=== PATIENT | female | born 1945 | race Caucasian/White ===

== ENCOUNTER → 2016-07-20 | Outpatient (CLI) | payer OTHER ==
[2016-07-20 08:43] LABS: BASOPHILS # (AUTO) 0.06 10*3/UL; EOSINOPHILS % (AUTO) 6.1 % (0-8); HEMATOCRIT 34.2 % (37.0-47.0); HEMOGLOBIN 10.7 g/dL (12.0-16.0); IMM GRAN % (AUTO) 0 % (0-5); IMM GRAN# (AUTO) 0 10*3/UL; LYMPHOCYTES # (AUTO) 1.37 10*3/uL; LYMPHOCYTES % (AUTO) 22.1 % (10-50); MEAN CORPUSCULAR HEMOGLOBIN 32.2 PG (27-31); MEAN CORPUSCULAR HGB CONC 31.3 g/dL (33-37); MEAN PLATELET VOLUME 10.7 FL (7.4-12.2); MONOCYTES # (AUTO) 0.46 10*3/UL (0.3-0.8); MONOCYTES % (AUTO) 7.4 % (5-15); NEUTROPHILS # (AUTO) 3.94 10*3/UL; NEUTROPHILS % (AUTO) 63.4 % (50-80); RDW COEFFICIENT OF VARIATION 13.2 % (11.5-14.5); RED BLOOD COUNT 3.32 10^6/uL (4.20-5.40); WHITE BLOOD COUNT 6.21 10^3/uL (4.8-10.8)
[2016-07-20 08:49] LABS: PLATELET MORPHOLOGY COMMENT NORMAL MORPHOLOGY (NORM)
[2016-07-20 09:34] LABS: POTASSIUM 4.2 meq/L (3.8-5.2)
[2016-07-20 09:35] LABS: BUN/CREATININE RATIO 38.75 (6-20); CALCIUM 8.9 mg/dL (8.7-10.7); CREATININE 1.6 mg/dL (0.50-1.20)
[2016-07-20 09:36] LABS: TOTAL PROTEIN 6.6 g/dL (6.1-8.0)
[2016-07-20 09:38] LABS: BILIRUBIN,TOTAL 0.7 mg/dL (0.3-1.2)
[2016-07-20 11:27] LABS: BILIRUBIN,URINE NEGATIVE (NEG); GLUCOSE, URINE (UA) NEGATIVE (NEG); LEUKOCYTE ESTERASE ,URINE SMALL (NEG); NITRATE,URINE POSITIVE (NEG); OCCULT BLOOD,URINE NEGATIVE (NEG); PH,URINE 5.5 (5.0-8.5); PROTEIN,URINE NEGATIVE (NEG); UROBILINOGEN,URINE 0.2 mg/dL (0.2)
[2016-07-20 11:30] LABS: CLARITY,URINE SLIGHTLY CLOUDY (CLEAR); URINE SAMPLE TYPE CLEAN CATCH URINE
[2016-07-20 11:34] LABS: BACTERIA,URINE MODERATE; SQUAMOUS EPITHELIAL CELL,UR RARE
[2016-07-20 14:11] LABS: LDL CHOLESTEROL,CALCULATED 28.2 mg/dL
[2016-07-24 07:37] LABS: MEAN BLOOD GLUCOSE (CALC) 123.79 mg/dL
[2016-07-24 07:39] LABS: HEMOGLOBIN A1C 6.3 % (4.2-6.0)
== END ==
LOC: LAB 08:24
PROVIDERS: ATTEND Internal Medicine
DX: E13.9 Other specified diabetes mellitus without complications (principal); I10 Essential (primary) hypertension; E78.2 Mixed hyperlipidemia; N39.0 Urinary tract infection, site not specified
CPT/HCPCS: 36415; 80053; 80061; 81001; 82043; 82728; 83036; 83540; 83550; 84443; 85025; 87077; 87088; 87186

== ENCOUNTER → 2016-09-05 | Outpatient (CLI) | payer OTHER ==
[2016-09-05 11:22] LABS: CALCIUM 9.4 mg/dL (8.7-10.7); CREATININE 1.5 mg/dL (0.50-1.20); POTASSIUM 4.4 meq/L (3.8-5.2)
[2016-09-05 11:23] LABS: BILIRUBIN,URINE NEGATIVE (NEG); CLARITY,URINE Slightly Clo (CLEAR); GLUCOSE, URINE (UA) NEGATIVE (NEG); LEUKOCYTE ESTERASE ,URINE MODERATE (NEG); NITRATE,URINE POSITIVE (NEG); OCCULT BLOOD,URINE NEGATIVE (NEG); PROTEIN,URINE NEGATIVE (NEG); UROBILINOGEN,URINE 0.2 mg/dL (0.2)
[2016-09-05 11:37] LABS: BACTERIA,URINE MANY; SQUAMOUS EPITHELIAL CELL,UR FEW; URINE SAMPLE TYPE CLEAN CATCH URINE; WBC,URINE 35-40
== END ==
LOC: MOB LAB 08:49
PROVIDERS: ATTEND Internal Medicine
DX: E78.2 Mixed hyperlipidemia (principal); I10 Essential (primary) hypertension; N15.1 Renal and perinephric abscess; R60.0 Localized edema; N39.0 Urinary tract infection, site not specified; R82.99 Other abnormal findings in urine
CPT/HCPCS: 80048; 81001; 82607; 87077; 87088; 87186

== ENCOUNTER → 2016-09-19 | Outpatient (CLI) | payer OTHER ==
--- NOTE | 2016-09-19 12:52 | DI ---
BILATERAL RENAL ULTRASOUND, 09/19/2016 9:49 AM: Clinical History: Urinary tract infection. Previous Exam: None at this facility. Scans are performed through both kidneys in multiple projections. The right kidney measures 143 mm, a nd the left kidney measures 88 mm. There is an ovoid 30 x 45 x 50 mm simple cyst in the lower pole of the right kidney, but there is no solid mass in either kidney. There is less renal parenchyma in the left kidney compared to the right. Medial to the inner margin of the left kidney is a fluid containi ng structure that probably represents a mildly dilated left renal pelvis, but there is no caliectasis . 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 There is no left hydroureter. There is right no hydronephrosis or hydroureter. Perfusion to both kidneys is symmetric and normal. The bladder only partially filled but is normal. Bilateral ureteral jets are not visuali zed. There is an estimated prevoid bladder volume of 90 mL. There is no post void residual volume. Readin. The right kidney is much larger than the left kidney but part of the reason is the presence of a 30 x 45 x 50 mm simple cyst in the lower pole. There is a normal appearance of the right renal parenc hyma. The left kidney is smaller than the right in the amount of renal parenchyma in the left kidney is decreased compared to the right side. Neither kidney exhibits caliectasis, but the left renal pelv is may be dilated secondary to a low-grade congenital ureteropelvic junction stenosis. The right linda l pelvis and there is no hydroureter noted on either side. 2. The bladder is only partially filled but the patient does void completely. Neither ureteral jet w as visualized within the duration of the exam.
== END ==
LOC: US 09:41
PROVIDERS: ATTEND Internal Medicine
DX: N39.0 Urinary tract infection, site not specified (principal); N15.1 Renal and perinephric abscess; R79.89 Other specified abnormal findings of blood chemistry
CPT/HCPCS: 76770

== ENCOUNTER → 2016-09-29 | Outpatient (CLI) | payer OTHER ==
[2016-09-29 10:09] LABS: BILIRUBIN,URINE NEGATIVE (NEG); CLARITY,URINE CLEAR (CLEAR); COLOR,URINE YELLOW; GLUCOSE, URINE (UA) NEGATIVE (NEG); NITRATE,URINE POSITIVE (NEG); OCCULT BLOOD,URINE Trace-intact (NEG); PH,URINE 5.5 (5.0-8.5); PROTEIN,URINE NEGATIVE (NEG); UROBILINOGEN,URINE 0.2 mg/dL (0.2)
[2016-09-29 10:20] LABS: URINE SAMPLE TYPE CLEAN CATCH URINE
[2016-09-29 10:21] LABS: BACTERIA,URINE MODERATE; SQUAMOUS EPITHELIAL CELL,UR RARE; WBC,URINE 30-40
[2016-09-29 10:22] LABS: BUN/CREATININE RATIO 48.66 (6-20); CALCIUM 9.3 mg/dL (8.7-10.7)
== END ==
LOC: MOB LAB 08:32
PROVIDERS: ATTEND Internal Medicine
DX: N39.0 Urinary tract infection, site not specified (principal); R82.99 Other abnormal findings in urine; I10 Essential (primary) hypertension
CPT/HCPCS: 36415; 80048; 81001; 87077; 87088; 87186

== ENCOUNTER → 2016-11-10 | Outpatient (CLI) | payer OTHER ==
[2016-11-10 13:29] LABS: BILIRUBIN,URINE NEGATIVE (NEG); COLOR,URINE YELLOW; GLUCOSE, URINE (UA) NEGATIVE (NEG); NITRATE,URINE POSITIVE (NEG); OCCULT BLOOD,URINE NEGATIVE (NEG); PROTEIN,URINE NEGATIVE (NEG); UROBILINOGEN,URINE 0.2 mg/dL (0.2)
[2016-11-10 13:42] LABS: CLARITY,URINE SLIGHTLY CLOUDY (CLEAR)
[2016-11-10 13:44] LABS: BACTERIA,URINE MODERATE; SQUAMOUS EPITHELIAL CELL,UR RARE; URINE SAMPLE TYPE CLEAN CATCH URINE; WBC,URINE 40-50
== END ==
LOC: MOB LAB 09:38
PROVIDERS: ATTEND Internal Medicine
DX: N39.0 Urinary tract infection, site not specified (principal); R82.99 Other abnormal findings in urine
CPT/HCPCS: 81001; 87077; 87088; 87186

== ENCOUNTER → 2016-11-14 | Outpatient (CLI) | payer OTHER | LOC: MMPC 11:11 | PROVIDERS: ATTEND Internal Medicine | DX: E11.9 Type 2 diabetes mellitus without complications (principal); I10 Essential (primary) hypertension; R79.9 Abnormal finding of blood chemistry, unspecified; M54.5 Low back pain; M25.562 Pain in left knee; M25.561 Pain in right knee; M25.511 Pain in right shoulder; E78.2 Mixed hyperlipidemia; N30.00 Acute cystitis without hematuria | CPT/HCPCS: 99213; G0463 ==

== ENCOUNTER → 2016-11-15 | Outpatient (CLI) | payer OTHER ==
[2016-11-15 09:39] LABS: BASOPHILS % (AUTO) 1.5 % (0-1); EOSINOPHILS # (AUTO) 0.45 10*3/UL; EOSINOPHILS % (AUTO) 6.6 % (0-8); HEMOGLOBIN 10.9 g/dL (12.0-16.0); LYMPHOCYTES # (AUTO) 1.49 10*3/uL; MEAN CORPUSCULAR HEMOGLOBIN 33.4 PG (27-31); MEAN CORPUSCULAR HGB CONC 32.1 g/dL (33-37); MEAN CORPUSCULAR VOLUME 104.3 FL (81-99); MONOCYTES # (AUTO) 0.37 10*3/UL (0.3-0.8); MONOCYTES % (AUTO) 5.4 % (5-15); NEUTROPHILS # (AUTO) 4.37 10*3/UL; NEUTROPHILS % (AUTO) 64.5 % (50-80); RED BLOOD COUNT 3.26 10^6/uL (4.20-5.40)
[2016-11-15 09:47] LABS: PLATELET MORPHOLOGY COMMENT NORMAL MORPHOLOGY (NORM); RBC MORPHOLOGY COMMENT NORMAL MORPHOLOGY (NORM); WBC MORPHOLOGY COMMENT NORMAL MORPHOLOGY (NORM)
[2016-11-15 09:51] LABS: BUN/CREATININE RATIO 48.12 (6-20); CALCIUM 9.5 mg/dL (8.7-10.7); SERUM ALBUMIN 3.9 g/dL (3.5-4.8)
[2016-11-15 09:55] LABS: CHOL/HDL RATIO 2.55 RATIO (0-4.0); HDL CHOLESTEROL 40 mg/dL (40-150); SERUM CHOLESTEROL 102 mg/dL (120-200)
[2016-11-15 10:06] LABS: C-REACTIVE PROTEIN < 0.5 mg/dL (0.0-0.9)
[2016-11-15 10:18] LABS: HEMOGLOBIN A1C 6.16 % (4.2-6.0)
--- NOTE | 2016-11-15 11:33 | DI ---
XR SHOULDER MIN 2VW,11/15/2016 9:21 AM: Clinical History: Right shoulder pain Previous Exam: January 14, 2008 Findings: 3 views of the right shoulder are obtained, and demonstrate advanced degenerative changes of the righ t acromioclavicular joint. The adjacent right lung and chest wall are unremarkable. Impression: Diffuse degenerative hypertrophy of the right acromioclavicular joint otherwise unremarkable. These c hanges are only slightly worse since 2007.
--- NOTE | 2016-11-15 11:37 | DI ---
XR L-SPINE 2-3 VW,11/15/2016 9:21 AM: Clinical History: Low back pain. Previous Exam: None at this facility. Findings: 3 views of the lumbar spine are obtained, and demonstrate diffuse degenerative changes of lumbar spin e with near complete loss of intervertebral disc height. There is grade 1 anterolisthesis of L4 on L5. Postsurgical changes are also noted within the abdomen which were not seen on the prior exam. There has been increasing loss of intervertebral disc height and increasing sclerosis. No pathologic calcifications are seen. Impression: Advancing degenerative disc disease and facet arthropathy.
--- NOTE | 2016-11-15 11:40 | DI ---
XR KNEE CMPT 4 OR MORE VWS,11/15/2016 9:21 AM: Clinical History: Left knee pain Previous Exam: None at this facility. Findings: 3 views of the right knee are obtained, and demonstrate tricompartmental degenerative changes of the right knee with osteophyte formation. There is a loose body noted within the suprapatellar recess. Peripheral vascular calcifications are seen. Impression: Advanced degenerative osteoarthritis of the right knee to include loose bodies which would suggest un derlying full-thickness osteochondral defects.
== END ==
LOC: RAD 09:17
PROVIDERS: ATTEND Internal Medicine
DX: M25.562 Pain in left knee (principal); M54.5 Low back pain; M25.511 Pain in right shoulder; E11.65 Type 2 diabetes mellitus with hyperglycemia; I10 Essential (primary) hypertension; E78.2 Mixed hyperlipidemia; N30.00 Acute cystitis without hematuria; E66.01 Morbid (severe) obesity due to excess calories; R60.0 Localized edema; M17.12 Unilateral primary osteoarthritis, left knee; M47.816 Spondylosis without myelopathy or radiculopathy, lumbar region; M19.011 Primary osteoarthritis, right shoulder
CPT/HCPCS: 36415; 72100; 73030; 73564; 80053; 80061; 83036; 85025; 86140

== ENCOUNTER → 2016-12-05 | Outpatient (CLI) | payer OTHER | LOC: MMPC 11:11 | PROVIDERS: ATTEND Internal Medicine | DX: I10 Essential (primary) hypertension (principal); E11.9 Type 2 diabetes mellitus without complications; R79.89 Other specified abnormal findings of blood chemistry; R10.32 Left lower quadrant pain | CPT/HCPCS: 99213; G0463 ==

== ENCOUNTER 2017-02-03 21:12 | Inpatient (IN) | payer OTHER ==
[2017-02-03] MEDS ORDERED: NORMAL SALINE 10 ML SYRINGE FLUSH IVP PRN (21:30)
--- NOTE | 2017-02-03 21:36 | EKG ---
[address] [address] Measurements Intervals [place] Rate: 160 P: IN: 0 QRS: 27 QRSD: 86 T: 51 QT: 262 QTc: 351 Interpretive Statements ATRIAL FIBRILLATION WITH RAPID VENTRICULAR RESPONSE LOW QRS VOLTAGE IN EXTREMITY LEADS [QRS DEFLECTION < 0.5 mV IN LIMB LEADS] MODERATE ST DEPRESSION [0.05+ mV ST DEPRESSION] INTERPRETATION BASED ON A DEFAULT AGE OF 40 YEARS No previous ECG available for comparison Electronically Signed On 02-06-17 07:56:08 MDT by Marino Manuel MD [email or web address]
[2017-02-03 21:37] LABS: BASOPHILS # (AUTO) 0.02 10*3/UL; BASOPHILS % (AUTO) 0.2 % (0-1); EOSINOPHILS # (AUTO) 0 10*3/UL; EOSINOPHILS % (AUTO) 0 % (0-8); HEMATOCRIT 31.4 % (37.0-47.0); HEMOGLOBIN 10.1 g/dL (12.0-16.0); LYMPHOCYTES # (AUTO) 0.65 10*3/uL; MEAN CORPUSCULAR HEMOGLOBIN 31.9 PG (27-31); MEAN CORPUSCULAR HGB CONC 32.2 g/dL (33-37); MEAN CORPUSCULAR VOLUME 99.1 FL (81-99); MEAN PLATELET VOLUME 11.8 FL (7.4-12.2); MONOCYTES # (AUTO) 0.96 10*3/UL (0.3-0.8); MONOCYTES % (AUTO) 8.4 % (5-15); NEUTROPHILS # (AUTO) 9.78 10*3/UL; NEUTROPHILS % (AUTO) 85.5 % (50-80); PLATELET MORPHOLOGY COMMENT NORMAL MORPHOLOGY (NORM); RBC MORPHOLOGY COMMENT NORMAL MORPHOLOGY (NORM); RED BLOOD COUNT 3.17 10^6/uL (4.20-5.40); WBC MORPHOLOGY COMMENT NORMAL MORPHOLOGY (NORM)
[2017-02-03] MEDS: Sodium Chloride 0.9% 1,000 ML PRIMARY IV ONE ×2 (21:44→22:32)
[2017-02-03 21:55] LABS: BUN/CREATININE RATIO 39.13 (6-20); CALCIUM 8.8 mg/dL (8.7-10.7); SERUM ALBUMIN 3.2 g/dL (3.5-4.8)
[2017-02-03 22:05] LABS: MAGNESIUM 2.4 mg/dL (1.6-2.4)
[2017-02-03 22:10] LABS: VENOUS PH 7.38 (7.32-7.42)
--- NOTE | 2017-02-03 22:11 | PDOC ---
General Adult HPI - General Chief Complaint: General Medical Stated Complaint: WEAKNESS/ "FEELS ILL" Date Seen by Provider: 02/03/17 Time Seen by Provider: 21:25 Source: POSITIVE: Patient, EMS Exam Limitations: POSITIVE: No limitations Nurse's Notes Reviewed & Considered: Yes EMS Report Reviewed & Considered: Verbal - History of Present Illness Initial Comment: The patient is a 71-year-old female who is brought to the emergency department by ambulance. She reports that she has not been feeling well for the past week or so. She reports generalized weakness and malaise. She states that she "hurts" all over however primarily in her legs and back. She states that she has not really ate or drank for the past few days. She also reports that she has not taken any of her medications for at least the past couple of days and possibly longer. Today she was so weak that she could not even get out of bed. A friend came to check on her and subsequently called EMS. When they arrived the patient was awake and alert. Initial vital signs revealed a pulse in the 160s and this appeared to be A. fib on the monitor. Her blood pressure was 116 initially. The patient denies any sensation of chest pain or palpitation. She does report shortness of breath chronically. She denies any fever or chills. She does have a history of hypertension and diabetes. Her blood sugar on scene was over 300. She does have a history of urinary tract infections and reports she was last treated approximately 6 weeks ago. Have you received a tetanus shot in the past 10 years?: Unknown - Patient Home Medications Home Medications: Home Medications Aspirin 81 mg PO DAILY tab 07/04/16 Bacillus Coagulans [Probiotic] 1 each PO DAILY cap 07/04/16 Cholecalciferol (Vitamin D3) [Vitamin D3] 1 tab PO QD tab 07/04/16 Ibuprofen 2 tab-cap PO TID tab 07/04/16 Iron 18 mg PO DAILY tab 07/04/16 Multivitamin [Daily Lionel] 1 tab PO DAILY tab 07/04/16 Vit A/Vit C/Vit E/Zinc/Copper [Preservision Areds Tablet] 1 each PO QD tab Vitamin B Complex & Vit C No.4 [Super B Complex] 1 tab-cap PO QD tab 07/04/16 Metformin HCl 1 tab-cap PO BID #180 tab-cap 08/02/16 Potassium Chloride 1 tab-cap PO PRN #90 tab-cap 09/05/16 Fluconazole [Diflucan] 1 tab PO ONCE #1 tab 09/19/16 Metoprolol Tartrate 1 tab-cap PO BID #180 tab 09/30/16 Atorvastatin Calcium 1 tab-cap PO QD #90 tab-cap 10/17/16 Duloxetine HCl 1 tab-cap PO BID #180 tab-cap 11/14/16 Furosemide 1 tab PO BID #180 tab 11/14/16 Gabapentin 1 tab-cap PO TID #270 cap 11/14/16 Lisinopril/Hydrochlorothiazide [Lisinopril-Hctz 10-12.5 Mg Tab] 1 tab-cap PO QD #90 tab-cap 01/18/17 - Patient Allergies Allergies/Adverse Reactions: Allergies Allergy/AdvReac Type Severity Reaction Status Date / Time No Known Allergies Allergy Verified 02/03/17 22:01 Past Medical History Past Medical History Reviewed: Other (please comment) (Medical record reviewed) ROS - Limitations ROS Limitations: No Limitations (The patient is somewhat of a poor historian although she does answer questions) Constitution: DENIES: Chills, Fever Cardiovascular: DENIES: Chest Pain, Heart Palpitations Respiratory: REPORTS: Shortness Of Breath. DENIES: Cough Non Productive, Cough Productive, Hurts To Breathe Neurological: REPORTS: Difficulty Walking (Patient has generalized weakness). DENIES: Headache Gastrointestinal: REPORTS: Other (She was incontinent of stool at home). DENIES : Abdominal Pain, Nausea, Vomitting, Diarrhea Endocrine: REPORTS: Fatigue Musculoskeletal: REPORTS: Back Pain (Currently low back.), Other (She reports pain in her legs with history of neuropathy) Genitourinary: DENIES: Dysuria, Difficulty Urinating Eyes: REPORTS: Denies Symptoms ENT: REPORTS: Denies Symptoms Skin: DENIES: Rash General Adult Exam - General Appearance General Appearance: POSITIVE: Alert, Cooperative, No Acute Distress - HEENT HEENT: POSITIVE: Head Inspection Nml, Eyes Inspection Nml, Ears Inspection Nml, Nose Inspection Nml, Dry Mucous Membranes - Neck Neck: POSITIVE: Normal Inspection. NEGATIVE: Lymphadenopathy - Respiratory Respiratory: POSITIVE: No Respiratory Distress, Breath Sounds Normal - Cardiovascular Cardiovascular: POSITIVE: No Murmur, Irregularly Irreg. Rhythm, Tachycardia Peripheral Pulses: Dorsalis-pedis (R): 2+, Dorsalis-pedis (L): 2+ - Abdomen Abdomen: Soft: (All Quadrants), Denies Tenderness: (All Quadrants), No Distention: (All Quadrants) - Skin Skin: POSITIVE: Normal Color, No Rash, Other (Nursing staff evaluated the patient's backside when they were cleaning, she had a lot of dried stool however no obvious skin breakdown or abscess) - Extremities Extremity: Normal ROM: (All Extremities) - Neurological / Psychological Neurological: POSITIVE: Oriented X3, beach attendant Normal As Tested, Motor Normal, Sensation Normal, Other (No focal neurologic deficit) General Adult Progress - Results Reviewed by me Xrays/CTs/US Reviewed by me: Yes Radiology Findings: Chest x-ray shows no obvious acute findings with normal heart size and normal lung cotto Lab Results Reviewed: Yes Lab Results:: Laboratory Results 02/03/17 02/03/17 02/03/17 Range/Units 21:01 21:50 21:53 WBC 11.43 H (4.8-10.8) 10^3/uL RBC 3.17 L (4.20-5.40) 10^6/uL Hgb 10.1 L (12.0-16.0) g/dL Hct 31.4 L (37.0-47.0) % MCV 99.1 H (81-99) FL MCH 31.9 H (27-31) PG MCHC 32.2 L (33-37) g/dL RDW Std Deviation 44.0 (39-50) fL RDW Coeff of Rafaela 12.7 (11.5-14.5) % Plt Count 214 (140-350) 10*3/uL MPV 11.8 (7.4-12.2) FL Immature Gran % (Auto) 0.2 (0-5) % Neut % (Auto) 85.5 H (50-80) % Lymph % (Auto) 5.7 L (10-50) % Yell % (Auto) 8.4 (5-15) % Eos % (Auto) 0 (0-8) % Baso % (Auto) 0.2 (0-1) % Immature Gran # (Auto) 0.02 10*3/UL Neut # (Auto) 9.78 10*3/UL Lymph # (Auto) 0.65 10*3/uL Yell # (Auto) 0.96 H (0.3-0.8) 10*3/UL Eos # (Auto) 0 10*3/UL Baso # (Auto) 0.02 10*3/UL WBC Morphology Comment Normal morphology (NORM) Plt Morphology Comment Normal morphology (NORM) RBC Morph Comment Normal morphology (NORM) VBG pH 7.38 (7.32-7.42) VBG pCO2 15 L (45-55) mmHg VBG HCO3 9 L (22-26) mmol/L VBG Base Excess -16 L (-2-2) MMOL/L Sodium 135 (135-145) meq/L Potassium 3.6 L (3.8-5.2) meq/L Chloride 106 (98-112) meq/L Carbon Dioxide 12 L (23-33) meq/L Anion Gap 17 (5-20) BUN 90 H (7-22) mg/dL Creatinine 2.3 H (0.50-1.20) mg/dL Estimated GFR 21 (>60 ml/min/1.73m(2)) BUN/Creatinine Ratio 39.13 H (6-20) Glucose 334 H (78-110) mg/dL Calculated Osmolality 320.0 H (267-292) mOsm/kg Lactic Acid 1.2 (0.70-2.10) MMOL/L Calcium 8.8 (8.7-10.7) mg/dL Magnesium 2.4 (1.6-2.4) mg/dL Total Bilirubin 1.3 H (0.3-1.2) mg/dL AST 34 (8-39) IU/L ALT 34 (9-52) IU/L Alkaline Phosphatase 99 (38-126) IU/L Total Creatine Kinase 841 H (30-136) IU/L Troponin I 0.022 (< 0.040) ng/mL C-Reactive Protein 41.9 H (0.0-0.9) mg/dL NT-Pro-B Natriuret Pep 2340 H (0-125) PG/ML Total Protein 6.0 L (6.1-8.0) g/dL Albumin 3.2 L (3.5-4.8) g/dL Globulin 2.8 (2.50-4.10) g/dL Albumin/Globulin Ratio 1.10 L (1.3-2.0) mg/g Ur Collection Type Urine Color Urine Clarity (CLEAR) Urine pH (5.0-8.5) Ur Specific [place] (1.005-1.030) Urine Protein (NEG) mg/dl Urine Glucose (UA) (NEG) mg/dL Urine Ketones (NEG) Urine Occult Blood (NEG) Urine Nitrate (NEG) Urine Bilirubin (NEG) Urine Urobilinogen (0.2) EU/dL Ur Leukocyte Esterase (NEG) Urine RBC (NONE) /hpf Urine WBC (NONE) Ur Squamous Epith Cells (NONE) Ur Renal Epithelial Cell (NONE) Urine Crystals Urine Bacteria (NONE) Urine Casts (NONE) Urine Mucus (NONE) Urine Trichomonas (NONE) Urine Yeast (NONE) Ur Culture Indicated? 02/03/17 Range/Units 23:25 WBC (4.8-10.8) 10^3/uL RBC (4.20-5.40) 10^6/uL Hgb (12.0-16.0) g/dL Hct (37.0-47.0) % MCV (81-99) FL MCH (27-31) PG MCHC (33-37) g/dL RDW Std Deviation (39-50) fL RDW Coeff of Rafaela (11.5-14.5) % Plt Count (140-350) 10*3/uL MPV (7.4-12.2) FL Immature Gran % (Auto) (0-5) % Neut % (Auto) (50-80) % Lymph % (Auto) (10-50) % Yell % (Auto) (5-15) % Eos % (Auto) (0-8) % Baso % (Auto) (0-1) % Immature Gran # (Auto) 10*3/UL Neut # (Auto) 10*3/UL Lymph # (Auto) 10*3/uL Yell # (Auto) (0.3-0.8) 10*3/UL Eos # (Auto) 10*3/UL Baso # (Auto) 10*3/UL WBC Morphology Comment (NORM) Plt Morphology Comment (NORM) RBC Morph Comment (NORM) VBG pH (7.32-7.42) VBG pCO2 (45-55) mmHg VBG HCO3 (22-26) mmol/L VBG Base Excess (-2-2) MMOL/L Sodium (135-145) meq/L Potassium (3.8-5.2) meq/L Chloride (98-112) meq/L Carbon Dioxide (23-33) meq/L Anion Gap (5-20) BUN (7-22) mg/dL Creatinine (0.50-1.20) mg/dL Estimated GFR (>60 ml/min/1.73m(2)) BUN/Creatinine Ratio (6-20) Glucose (78-110) mg/dL Calculated Osmolality (267-292) mOsm/kg Lactic Acid (0.70-2.10) MMOL/L Calcium (8.7-10.7) mg/dL Magnesium (1.6-2.4) mg/dL Total Bilirubin (0.3-1.2) mg/dL AST (8-39) IU/L ALT (9-52) IU/L Alkaline Phosphatase (38-126) IU/L Total Creatine Kinase (30-136) IU/L Troponin I (< 0.040) ng/mL C-Reactive Protein (0.0-0.9) mg/dL NT-Pro-B Natriuret Pep (0-125) PG/ML Total Protein (6.1-8.0) g/dL Albumin (3.5-4.8) g/dL Globulin (2.50-4.10) g/dL Albumin/Globulin Ratio (1.3-2.0) mg/g Ur Collection Type Cath specimen Urine Color Yellow Urine Clarity Slightly cloudy (CLEAR) Urine pH 5.0 (5.0-8.5) Ur Specific [place] 1.015 (1.005-1.030) Urine Protein 30 (NEG) mg/dl Urine Glucose (UA) Negative (NEG) mg/dL Urine Ketones Trace (NEG) Urine Occult Blood Trace-lysed H (NEG) Urine Nitrate Negative (NEG) Urine Bilirubin Small (NEG) Urine Urobilinogen 0.2 (0.2) EU/dL Ur Leukocyte Esterase Trace (NEG) Urine RBC 0-1 (NONE) /hpf Urine WBC 3-5 (NONE) Ur Squamous Epith Cells Rare (NONE) Ur Renal Epithelial Cell None (NONE) Urine Crystals None Urine Bacteria Many (NONE) Urine Casts Rare (NONE) Urine Mucus None (NONE) Urine Trichomonas None (NONE) Urine Yeast None (NONE) Ur Culture Indicated? Culture set EKG Interpreted/Reviewed By Me:: Yes EKG Interpretation:: POSITIVE: Other (EKG shows atrial fibrillation with rapid ventricular response, no ST segment or T-wave changes, no previous EKGs available for comparison) - Patient's Progress MDM / ED Course: On arrival the patient is in atrial fibrillation with rapid ventricular response with a rate in the 150s to 160s. Her blood pressure on arrival was in the 90s systolic. She appeared to be significantly dehydrated on arrival. She received an initial 1 L fluid bolus. Her blood pressure remained in the 90s to 100 systolic. She received a second liter bolus. She does not have any known history of atrial fibrillation and is unclear how long she has been in this rhythm. I did try giving a low dose of Cardizem at 5 mg IV after which her blood pressure dropped into the 80s systolic. Her pulse did come down into the 130s after administration of Cardizem. Blood cultures and lactate were drawn with initial IV start. Her lactate is normal and her venous blood gas reveals normal pH. Her BUN and creatinine are significantly elevated at 90 and 2.3. Her baseline creatinine has been around 1.5. In addition her CPK is elevated at 800. Her white count is mildly elevated at 11.4 with a CRP of 41. Her urine does reveal a few white blood cells and many bacteria from a catheter UA. Culture is pending. Her troponin is normal and her BNP is elevated at 2000. Findings were discussed with the patient and her family as well as Dr. Rouse. The patient was started on a heparin drip and will be admitted to the ICU. She was given Rocephin 2 g IV. - Consult Counseled: POSITIVE: Patient, Family (I did discuss current findings and recommendations with the patient's son by telephone), RE: Lab Results, RE: Radiology Results, RE: DX Patient Care Time - Estimated PCT Patient Care Time (In Minutes): 50 Vital Signs - Recent Vital Signs Vital Signs: Vital Signs (Last 8 hours) Temp Pulse Pulse Resp BP BP Pulse Ox 02/04/17 06:00 134 H 20 78/54 02/04/17 05:48 140 H 22 90/59 93 02/04/17 05:40 95 02/04/17 05:30 141 H 16 87/58 95 02/04/17 05:25 96.6 F L 146 H 16 87/37 95 02/04/17 04:56 135 H 19 02/04/17 04:49 135 H 19 93/42 94 02/04/17 04:30 144 H 24 79/57 95 02/04/17 04:20 138 H 78/58 02/04/17 04:15 122 H 16 73/44 94 02/04/17 04:04 130 H 87/51 02/04/17 04:03 137 H 73/57 02/04/17 03:30 152 H 15 82/53 96 02/04/17 03:07 133 H 103/67 02/04/17 03:00 97.6 F 161 H 144 H 20 98/37 95 02/04/17 02:56 115 H 87/74 02/04/17 02:44 165 H 99/57 02/04/17 02:19 147 H 14 02/04/17 02:10 172 H 28 H 90/67 97 02/04/17 01:50 97.6 F 159 H 24 97/64 99 02/04/17 01:32 98.1 F 152 H 18 108/51 92 02/04/17 00:49 144 H 108/51 02/04/17 00:06 151 H 81/61 02/03/17 23:53 142 H 103/70 02/03/17 23:47 165 H 89/72 - VS Reviewed Vital Signs Reviewed: Yes Discharge Clinical Impression: Acute on chronic renal failure, Atrial fibrillation with rapid ventricular response, Hypoglycemia, Dehydration, Weakness Discharge Disposition: Admit to Inpatient Condition: Fair Date Decision to Admit to Inpatient: 02/04/17 Time Decision to Admit to Inpatient: 02:30
[2017-02-03 22:31] LABS: C-REACTIVE PROTEIN 41.9 mg/dL (0.0-0.9)
[2017-02-03] MEDS ORDERED: MORPHINE SULFATE 2 MG/1 ML IVP ONE (23:04)
[2017-02-03] MEDS ORDERED: ONDANSETRON 4 MG/2 ML VIAL IVP ONE (23:04)
[2017-02-03] MEDS ORDERED: MORPHINE SULFATE 2 MG/1 ML ONE (23:05)
[2017-02-03] MEDS ORDERED: ONDANSETRON 4 MG/2 ML VIAL ONE (23:05)
[2017-02-03] MEDS ORDERED: DILTIAZEM 5 MG/ML - 5 ML IV ONE (23:34)
[2017-02-03 23:50] LABS: BILIRUBIN,URINE SMALL (NEG); CLARITY,URINE Slightly Cloudy (CLEAR); COLOR,URINE YELLOW; GLUCOSE, URINE (UA) NEGATIVE (NEG); NITRATE,URINE NEGATIVE (NEG); OCCULT BLOOD,URINE Trace-lysed (NEG); PROTEIN,URINE 30 mg/dl (NEG); UROBILINOGEN,URINE 0.2 EU/dL (0.2)
[2017-02-03 23:55] LABS: BACTERIA,URINE MANY; RBC,URINE 0-1 /hpf; SQUAMOUS EPITHELIAL CELL,UR RARE; URINE SAMPLE TYPE CATH SPECIMEN
[2017-02-03 23:56] LABS: URINE CASTS RARE
[2017-02-04] MEDS ORDERED: cefTRIAXone Inj 2 GM in Sodium Chloride 0.9% 100 ML IV ONE (00:05)
[2017-02-04] MEDS ORDERED: HEPARIN 5000 UNIT/1 ML IV ONE (00:39)
[2017-02-04] MEDS ORDERED: NORMAL SALINE 10 ML SYRINGE FLUSH IVP PRN (02:09)
[2017-02-04] MEDS ORDERED: LIDOCAINE W/ SODIUM BICARB 0.5 ML SYR SUBD PRN (02:09)
[2017-02-04] MEDS ORDERED: METOPROLOL TARTRATE 5 MG/5 ML VIAL IVP ONE ×2 (02:14→03:16)
[2017-02-04] MEDS ORDERED: Sodium Chloride 0.9% 1,000 ML PRIMARY IV SCH (02:15)
[2017-02-04] MEDS ORDERED: ACETAMINOPHEN 325 MG TABLET PO PRN (02:18)
--- NOTE | 2017-02-04 02:30 | PDOC ---
History and Physical - History of Present Illness Date and Time of Service: 02/04/2017 2 AM Chief Complaint: Weakness for a week History of Present Illness: This is a 71 years old female with medical history significant for history of diabetes type II on oral hypoglycemic agent, hypertension, history of leg edema on furosemide, obesity, history of gastric bypass before and previous multiple surgeries for hernia who was brought to the hospital for evaluation because of weakness that's being going on for a week. The patient couldn't point to her exact symptoms all what she said is that she' s been feeling weak, she seems slow to respond but otherwise she is with it she knows the day of the month the year. He said she's been laying in bed not eating and drinking for a week Because she is too weak to get up. She's not taking her medication the last time she took her medication was Monday. She denied abdominal pain, nausea, vomiting, and no chest pain, no shortness of breath, no palpitations, no headaches. There is no dysuria or hematuria. Her main symptoms is weakness, and generalized body ache. She's not sure what she had a temperature. In the ER evaluation revealed that she was dehydrated with worsening acute on chronic failure, she was also in A. fib rapid rate. They gave her fluid, and a dose of for Rocephin and she was started on heparin drip. They did try a small dose of Cardizem however her blood pressure dropped so that was discontinued. The patient was admitted. Apart from feeling weak right now she is denying other symptoms. Past Medical History Medical History: 1. Hypertension. 2. Diabetes on oral hypoglycemic agent. 3. She had a KYLE done in July of this year she couldn't tell me what was the reason for it but it did show moderate to severe aortic stenosis, ejection fraction was normal. 4. Hyperlipidemia. 5. History of left renal abscess in 2009 she was treated with IV antibiotics for few weeks. 6. History of depression. 7. History of peripheral neuropathy Surgical History: 1. History of previous gastric bypass surgery. 2. History of multiple abdominal wall hernia surgeries. 3. History of colectomy Family History: Reviewed an Not Pertinent Past Social History: Doesn't smoke, doesn't drink no drugs. Lives here in [place]. Her kids lives in different states. Tobacco Use: Never Smoker Substance Use Type: None Alcohol Use: None Medication / Allergies Home Medications: Home Medications Medication Instructions Recorded Confirmed Type Aspirin 81 mg PO DAILY tab 07/04/16 02/03/17 History Bacillus Coagulans [Probiotic] 1 each PO DAILY cap 07/04/16 02/03/17 History Cholecalciferol (Vitamin D3) 1 tab PO QD tab 07/04/16 02/03/17 History [Vitamin D3] Ibuprofen 2 tab-cap PO TID tab 07/04/16 02/03/17 History Iron 18 mg PO DAILY tab 07/04/16 02/03/17 History Multivitamin [Daily Lionel] 1 tab PO DAILY tab 07/04/16 02/03/17 History Vit A/Vit C/Vit E/Zinc/Copper 1 each PO QD tab 07/04/16 02/03/17 History [Preservision Areds Tablet] Vitamin B Complex & Vit C No.4 1 tab-cap PO QD tab 07/04/16 02/03/17 History [Super B Complex] Metformin HCl 1 tab-cap PO BID #180 tab-cap 08/02/16 02/03/17 Clinic Potassium Chloride 1 tab-cap PO PRN #90 tab-cap 09/05/16 02/03/17 Clinic Fluconazole [Diflucan] 1 tab PO ONCE #1 tab 09/19/16 02/03/17 Clinic Metoprolol Tartrate 1 tab-cap PO BID #180 tab 09/30/16 02/03/17 Clinic Atorvastatin Calcium 1 tab-cap PO QD #90 tab-cap 10/17/16 02/03/17 Clinic Duloxetine HCl 1 tab-cap PO BID #180 tab-cap 11/14/16 02/03/17 Clinic Furosemide 1 tab PO BID #180 tab 11/14/16 02/03/17 Clinic Gabapentin 1 tab-cap PO TID #270 cap 11/14/16 02/03/17 Clinic Lisinopril/Hydrochlorothiazide 1 tab-cap PO QD #90 tab-cap 01/18/17 02/03/17 Clinic [Lisinopril-Hctz 10-12.5 Mg Tab] Allergies/Adverse Reactions: Allergies Allergy/AdvReac Type Severity Reaction Status Date / Time No Known Allergies Allergy Verified 02/04/17 07:15 Review of Systems - Review of Systems All Systems: Reviewed & No Additional Complaints Except as Stated Exam - General General Appearance: POSITIVE: Obese Additional General Exam Details: She appeared dehydrated, slow to respond but otherwise she is with it. - Head Head Exam: POSITIVE: Normal Inspection - ENT ENT Exam: POSITIVE: Mucous Membranes Dry - Neck Neck Exam: POSITIVE: Normal Inspection - Respiratory Respiratory Exam: POSITIVE: Clear to Auscultation - Bilaterally - Cardiovascular Cardiovascular Exam: POSITIVE: Irregular Rhythm - GI/Abdominal GI/Abdominal Exam: POSITIVE: Normal Bowel Sounds, Non Tender, Non Distended, Soft Additional GI/Abdominal Exam Details: Abdominal wall hernia noted. - External Exam: POSITIVE: Deferred - Extremities Extremities Exam: POSITIVE: Normal Inspection - Back Back Exam: POSITIVE: Normal Inspection - Neurological Neurological Exam: POSITIVE: Alert, Oriented x 3, No Facial Droop, Moves All Extremities Equally Additional Neurological Exam Details: Looks generally weak. - Psychiatric Psychiatric Exam: POSITIVE: Normal Affect - Integumentary Integumentary Exam: POSITIVE: Dry Results - Labs CBC and BMP: 02/03/17 21:01 02/03/17 21:50 Labs - Last 24 Hours: Laboratory Results 02/04/17 Range/Units 00:41 APTT 36.8 H (22.6-36.2) SECS - EKG Data -: EKG Interpreted by Me - EKG Data Additional EKG Details: Atrial fibrillation with rapid ventricular response - Imaging Status: Image Reviewed by Me (I don't see consolidation or obvious infiltrate) Assessment and Plan - Patient Problems (1) Atrial fibrillation with rapid ventricular response Current Visit: Yes Status: Acute Comment: I don't see a previous EKGs, however she said she has never been told before that she has A. fib. She was given Cardizem however her blood pressure dropped after 5 mg dosage. We'll try small doses of metoprolol and see whether she can tolerate it. She was given fluids will continue with fluid. Will check her TSH, repeat the troponin. At one point will do an echo. If she doesn 't tolerate the beta omari may consider the amiodarone or digoxin. Regarding anticoagulation she was started on heparin. She wants to be DO NOT RESUSCITATE. (2) Diabetes Current Visit: Yes Status: Acute Comment: We'll put her on sliding scale insulin. Will hold off on her metformin. She has metabolic acidosis but the probably small its secondary to the renal failure. The gap is not significantly elevated. Will send for the beta hydroxybutyrate and acetone. (3) Hyperlipidemia Current Visit: Yes Status: Acute Comment: Same medications (4) Elevated C-reactive protein (CRP) Current Visit: Yes Status: Acute Comment: Not clear what is the reason for her elevated CRP. Her UA is mildly abnormal blood culture was sent and the urine culture was also sent. She did get a dosage of IV antibiotics I think we'll continue with IV antibiotics until we have culture results. (5) Acute on chronic renal failure Current Visit: Yes Status: Acute Comment: Probably prerenal component playing parts in worsening kidney function. She got fluid will continue fluid repeat her labs.
[2017-02-04] MEDS ORDERED: Ertapenem Inj 0.5 GM in Sodium Chloride 0.9% 100 ML IV SCH (03:00)
[2017-02-04] MEDS ORDERED: Ertapenem Inj 1 GM in Sodium Chloride 0.9% 100 ML IV SCH (03:00)
[2017-02-04 06:59] LABS: BASOPHILS % (AUTO) 0.2 % (0-1); EOSINOPHILS % (AUTO) 0 % (0-8); HEMATOCRIT 27.5 % (37.0-47.0); HEMOGLOBIN 8.6 g/dL (12.0-16.0); LYMPHOCYTES # (AUTO) 0.66 10*3/uL; MEAN CORPUSCULAR HEMOGLOBIN 31.3 PG (27-31); MEAN CORPUSCULAR HGB CONC 31.3 g/dL (33-37); MEAN PLATELET VOLUME 11.4 FL (7.4-12.2); MONOCYTES # (AUTO) 0.61 10*3/UL (0.3-0.8); MONOCYTES % (AUTO) 6.9 % (5-15); NEUTROPHILS # (AUTO) 7.55 10*3/UL; NEUTROPHILS % (AUTO) 85.2 % (50-80); RED BLOOD COUNT 2.75 10^6/uL (4.20-5.40)
[2017-02-04 07:00] LABS: BASOPHILS # (AUTO) 0.02 10*3/UL; EOSINOPHILS # (AUTO) 0 10*3/UL; PLATELET MORPHOLOGY COMMENT NORMAL MORPHOLOGY (NORM); RBC MORPHOLOGY COMMENT NORMAL MORPHOLOGY (NORM); WBC MORPHOLOGY COMMENT NORMAL MORPHOLOGY (NORM)
[2017-02-04] MEDS ORDERED: Insulin Lispro Flexpen 300 UNIT/3 ML INSULN.PEN SUBCUT SCH (07:00)
[2017-02-04 07:05] LABS: BUN/CREATININE RATIO 42.1 (6-20); CALCIUM 7.8 mg/dL (8.7-10.7); SERUM ALBUMIN 2.6 g/dL (3.5-4.8)
[2017-02-04] MEDS ORDERED: Sodium Chloride 0.9% 500 ML IV ONE (07:49)
[2017-02-04] MEDS ORDERED: NOREPINEPHRINE BITARTRATE 4 MG/4 ML VIAL IV ONE (07:58)
[2017-02-04] MEDS ORDERED: D5W 250 ML IV ONE (07:59)
--- NOTE | 2017-02-04 08:04 | PDOC(PROG) ---
Date and Time of Service: 02/04/2017 8 AM Interval History: Subjective Patient feels a somewhat better, still denying chest pain, no shortness of breath, no dizziness, no palpitations. Objective : Data - Labs CBC and BMP: 02/03/17 21:01 02/03/17 21:50 Labs - Last 24 Hours: Laboratory Results 02/04/17 Range/Units 00:41 APTT 36.8 H (22.6-36.2) SECS Objective : Exam - General General Appearance: No Acute Distress, Cooperative, Morbidly Obese - Head Head Exam: Normal Inspection - Eye Eye Exam: Normal Appearance - ENT ENT Exam: Normal Exam - Neck Neck Exam: Normal Inspection - Respiratory Respiratory Exam: Clear to Auscultation - Bilaterally - Cardiovascular Cardiovascular Exam: Irregular Rhythm - GI/Abdominal GI/Abdominal Exam: Normal Bowel Sounds, Non Tender, Non Distended, Soft - Rectal Rectal Exam: Deferred - External Exam: Deferred - Extremities Extremities Exam: Normal Inspection - Back Back Exam: Normal Inspection - Neurological Neurological Exam: Alert, CN II-XII Intact, Moves All Extremities Equally - Psychiatric Psychiatric Exam: Normal Affect Assessment and Plan - Patient Problems (1) Atrial fibrillation with rapid ventricular response Current Visit: Yes Status: Acute Comment: Her rate still not controlled well, her blood pressure is still borderline the highest I saw here was 90 this morning and then now is a 80 systolic, I spoke with the log chain feeder Dr. Kitchen in [place] and he suggested transfer. I did speak with the patient and she agreed on transfer. (2) Diabetes Current Visit: Yes Status: Acute Comment: She is on sliding scale insulin continue. (3) Elevated C-reactive protein (CRP) Current Visit: Yes Status: Acute Comment: She is covered with ertapenem until we have culture result. (4) Acute on chronic renal failure Current Visit: Yes Status: Acute Comment: Kidney function is better today compared to yesterday continue with IV fluid.
--- NOTE | 2017-02-04 08:17 | DCSUMMARY ---
Hospitalization Summary Admit Date: 02/04/17 Discharge Date: 02/04/17 Hospital Course: Transfer diagnoses 1. Atrial fibrillation with rapid ventricular response 2. Acute on chronic renal failure 3. Diabetes 4. History of hypertension 5. History of abdominal wall hernia with previous multiple surgeries 6. History of hyperlipidemia 7. History of peripheral neuropathy 8. History of depression 9. Elevated CRP unclear reason 10. History of previous gastric bypass surgery 11. History of previous left renal abscess in 2009 Hospital course This is a 71 years old female with medical history significant for history of diabetes type II on oral hypoglycemic agent, hypertension, history of leg edema on furosemide, obesity, history of gastric bypass surgery and previous multiple surgeries for abdominal wall hernia was brought to the hospital for evaluation because of weakness that has been going on for a week. Patient said that she is been feeling weak for a week, not eating and drinking for a week she attributed that to the weakness. There was no chest pain, no shortness of breath, no dizziness, no palpitations. Patient initially was slow to respond but otherwise she was with it she knew the day, the month and the year. It Was thought when she came in that she was dehydrated clinically, her lab test showed acute on chronic renal failure there was slight rise in the white count, borderline UA abnormality, blood culture was taken, she was found also to be in A. fib heart rate was 160 in addition to fluid and antibiotics she was given a small dose of Cardizem however her blood pressure dropped so that was discontinued. Patient was admitted. We tried a small dose of metoprolol she tolerated the first dose however the second dose of 2.5 mg she didn't tolerate that her blood pressure dropped. This morning, she said she was feeling better however her blood pressure was still in the low 80s systolic, her lab today showed an improvement in her BUN and creatinine her creatinine is 1.9 down from 2.3, her BUN went down to 80s from 90 when she came in. Hemoglobin showed anemia and it was 10.1 when she came in today's 8.6. She remained in A. fib with rate going to the 140s so I spoke with the freelance web designer Dr. Kitchen who suggested transfer I spoke with the patient she agreed on transfer. We did start the patient also on heparin drip. She did receive ertapenem when she came into the floor. before transfer we gave her another bolus of fluid. Will start vasopressin agent if blood pressure remains low. Laboratory Results 02/03/17 02/03/17 02/03/17 Range/Units 21:01 21:50 21:53 WBC 11.43 H (4.8-10.8) 10^3/uL RBC 3.17 L (4.20-5.40) 10^6/uL Hgb 10.1 L (12.0-16.0) g/dL Hct 31.4 L (37.0-47.0) % MCV 99.1 H (81-99) FL MCH 31.9 H (27-31) PG MCHC 32.2 L (33-37) g/dL RDW Std Deviation 44.0 (39-50) fL RDW Coeff of Rafaela 12.7 (11.5-14.5) % Plt Count 214 (140-350) 10*3/uL MPV 11.8 (7.4-12.2) FL Immature Gran % (Auto) 0.2 (0-5) % Neut % (Auto) 85.5 H (50-80) % Lymph % (Auto) 5.7 L (10-50) % [place] % (Auto) 8.4 (5-15) % Eos % (Auto) 0 (0-8) % Baso % (Auto) 0.2 (0-1) % Immature Gran # (Auto) 0.02 10*3/UL Neut # (Auto) 9.78 10*3/UL Lymph # (Auto) 0.65 10*3/uL [place] # (Auto) 0.96 H (0.3-0.8) 10*3/UL Eos # (Auto) 0 10*3/UL Baso # (Auto) 0.02 10*3/UL WBC Morphology Comment Normal morphology (NORM) Plt Morphology Comment Normal morphology (NORM) RBC Morph Comment Normal morphology (NORM) APTT (22.6-36.2) SECS VBG pH 7.38 (7.32-7.42) VBG pCO2 15 L (45-55) mmHg VBG HCO3 9 L (22-26) mmol/L VBG Base Excess -16 L (-2-2) MMOL/L Sodium 135 (135-145) meq/L Potassium 3.6 L (3.8-5.2) meq/L Chloride 106 (98-112) meq/L Carbon Dioxide 12 L (23-33) meq/L Anion Gap 17 (5-20) BUN 90 H (7-22) mg/dL Creatinine 2.3 H (0.50-1.20) mg/dL Estimated GFR 21 (>60 ml/min/1.73m(2)) BUN/Creatinine Ratio 39.13 H (6-20) Glucose 334 H (78-110) mg/dL Calculated Osmolality 320.0 H (267-292) mOsm/kg Lactic Acid 1.2 (0.70-2.10) MMOL/L Calcium 8.8 (8.7-10.7) mg/dL Magnesium 2.4 (1.6-2.4) mg/dL Total Bilirubin 1.3 H (0.3-1.2) mg/dL AST 34 (8-39) IU/L ALT 34 (9-52) IU/L Alkaline Phosphatase 99 (38-126) IU/L Total Creatine Kinase 841 H (30-136) IU/L Troponin I 0.022 (< 0.040) ng/mL C-Reactive Protein 41.9 H (0.0-0.9) mg/dL NT-Pro-B Natriuret Pep 2340 H (0-125) PG/ML Total Protein 6.0 L (6.1-8.0) g/dL Albumin 3.2 L (3.5-4.8) g/dL Globulin 2.8 (2.50-4.10) g/dL Albumin/Globulin Ratio 1.10 L (1.3-2.0) mg/g Ur Collection Type Urine Color Urine Clarity (CLEAR) Urine pH (5.0-8.5) Ur Specific [place] (1.005-1.030) Urine Protein (NEG) mg/dl Urine Glucose (UA) (NEG) mg/dL Urine Ketones (NEG) Urine Occult Blood (NEG) Urine Nitrate (NEG) Urine Bilirubin (NEG) Urine Urobilinogen (0.2) EU/dL Ur Leukocyte Esterase (NEG) Urine RBC (NONE) /hpf Urine WBC (NONE) Ur Squamous Epith Cells (NONE) Ur Renal Epithelial Cell (NONE) Urine Crystals Urine Bacteria (NONE) Urine Casts (NONE) Urine Mucus (NONE) Urine Trichomonas (NONE) Urine Yeast (NONE) Ur Culture Indicated? 02/03/17 02/04/17 Range/Units 23:25 00:41 WBC (4.8-10.8) 10^3/uL RBC (4.20-5.40) 10^6/uL Hgb (12.0-16.0) g/dL Hct (37.0-47.0) % MCV (81-99) FL MCH (27-31) PG MCHC (33-37) g/dL RDW Std Deviation (39-50) fL RDW Coeff of Rafaela (11.5-14.5) % Plt Count (140-350) 10*3/uL MPV (7.4-12.2) FL Immature Gran % (Auto) (0-5) % Neut % (Auto) (50-80) % Lymph % (Auto) (10-50) % [place] % (Auto) (5-15) % Eos % (Auto) (0-8) % Baso % (Auto) (0-1) % Immature Gran # (Auto) 10*3/UL Neut # (Auto) 10*3/UL Lymph # (Auto) 10*3/uL [place] # (Auto) (0.3-0.8) 10*3/UL Eos # (Auto) 10*3/UL Baso # (Auto) 10*3/UL WBC Morphology Comment (NORM) Plt Morphology Comment (NORM) RBC Morph Comment (NORM) APTT 36.8 H (22.6-36.2) SECS VBG pH (7.32-7.42) VBG pCO2 (45-55) mmHg VBG HCO3 (22-26) mmol/L VBG Base Excess (-2-2) MMOL/L Sodium (135-145) meq/L Potassium (3.8-5.2) meq/L Chloride (98-112) meq/L Carbon Dioxide (23-33) meq/L Anion Gap (5-20) BUN (7-22) mg/dL Creatinine (0.50-1.20) mg/dL Estimated GFR (>60 ml/min/1.73m(2)) BUN/Creatinine Ratio (6-20) Glucose (78-110) mg/dL Calculated Osmolality (267-292) mOsm/kg Lactic Acid (0.70-2.10) MMOL/L Calcium (8.7-10.7) mg/dL Magnesium (1.6-2.4) mg/dL Total Bilirubin (0.3-1.2) mg/dL AST (8-39) IU/L ALT (9-52) IU/L Alkaline Phosphatase (38-126) IU/L Total Creatine Kinase (30-136) IU/L Troponin I (< 0.040) ng/mL C-Reactive Protein (0.0-0.9) mg/dL NT-Pro-B Natriuret Pep (0-125) PG/ML Total Protein (6.1-8.0) g/dL Albumin (3.5-4.8) g/dL Globulin (2.50-4.10) g/dL Albumin/Globulin Ratio (1.3-2.0) mg/g Ur Collection Type Cath specimen Urine Color Yellow Urine Clarity Slightly cloudy (CLEAR) Urine pH 5.0 (5.0-8.5) Ur Specific [place] 1.015 (1.005-1.030) Urine Protein 30 (NEG) mg/dl Urine Glucose (UA) Negative (NEG) mg/dL Urine Ketones Trace (NEG) Urine Occult Blood Trace-lysed H (NEG) Urine Nitrate Negative (NEG) Urine Bilirubin Small (NEG) Urine Urobilinogen 0.2 (0.2) EU/dL Ur Leukocyte Esterase Trace (NEG) Urine RBC 0-1 (NONE) /hpf Urine WBC 3-5 (NONE) Ur Squamous Epith Cells Rare (NONE) Ur Renal Epithelial Cell None (NONE) Urine Crystals None Urine Bacteria Many (NONE) Urine Casts Rare (NONE) Urine Mucus None (NONE) Urine Trichomonas None (NONE) Urine Yeast None (NONE) Ur Culture Indicated? Culture set Transfer instruction Diet diabetic activity bedrest medications Active Medications Acetaminophen (Tylenol) 650 mg PO Q6H PRN PRN Reason: Pain Last Admin: 02/04/17 02:40 Dose: 650 mg Aspirin (Aspirin Chewable Tab) 81 mg PO DAILY KWABENA Atorvastatin Calcium (Lipitor) 20 mg PO BEDTIME [facility] Heparin Sodium/Dextrose (Heparin (Premix)) 500 mls @ 20 mls/hr IV .Q24H KWABENA PRN Reason: 1,000 UNIT/HR Last Admin: 02/04/17 01:16 Dose: 20 mls/hr Sodium Chloride (Normal Saline) 1,000 mls @ 150 mls/hr PRIMARY IV .Q6H40M KWABENA Last Admin: 02/04/17 02:42 Dose: 150 mls/hr Sodium Chloride (Normal Saline 0.9%) 25 mls @ 200 mls/hr IV .Post Infusion PRN PRN Reason: Flush Ertapenem 0.5 gm/ Sodium (Chloride) 100 mls @ 200 mls/hr IV Q24H KWABENA Last Admin: 02/04/17 04:14 Dose: 200 mls/hr Norepinephrine Bitartrate 8 mg (/ Dextrose) 258 mls @ 2.09 mls/hr IV .TITRATE KWABENA; 0.01 MCG/KG/MIN PRN Reason: Protocol Last Admin: 02/04/17 08:20 Dose: 2.09 mls/hr Insulin Human Lispro (Humalog Flexpen Inj) 0 - 14 unit SUBCUT AC HS KWABENA PRN Reason: Protocol Last Admin: 02/04/17 07:00 Dose: 8 unit Lidocaine HCl (Lidocaine Buffered Inj) 0.5 ml SUBD ONCE PRN PRN Reason: IV Starts Sodium Chloride (Saline Flush) 5 - 20 ml IVP BID PRN PRN Reason: Flush Follow-up per Dr. Kitchen [facility] Exam - Vitals Vital Signs: Vital Signs Temperature 97.0 F Temperature Source Temporal Artery Scan Pulse Rate [Telemetry] 142 Pulse Rate 140 Respiratory Rate 24 Blood Pressure [Left Radial 78/40 Artery] Blood Pressure 108/51 Pulse Ox 97 Oxygen Flow Rate 2 Oxygen Delivery Method Nasal Cannula Height 5 ft 1 in Weight 238 lb 12.8 oz Patient Problems - Patient Problem List (1) Atrial fibrillation with rapid ventricular response Current Visit: Yes Status: Acute (2) Diabetes Current Visit: Yes Status: Acute (3) Elevated C-reactive protein (CRP) Current Visit: Yes Status: Acute (4) Acute on chronic renal failure Current Visit: Yes Status: Acute
[2017-02-04] MEDS: Norepinephrine Drip 8 MG in D5W 250 ML IV SCH ×3 (08:20→08:44)
--- NOTE | 2017-02-04 08:29 | DI ---
AP CHEST X-RAY, 02/03/2017 8:30 PM : Clinical History: Weakness. Previous Exam: 06/22/2009. On this view, the patient took a very shallow inspiration. There is no acute soft tissue or bony abno rmality. There is cardiomegaly without CHF. Lungs are clear. Mediastinal structures are normal. There are no pulmonary nodules. Readin. There is no acute infiltrate or effusion. 2. Cardiomegaly without CHF.
[2017-02-04] MEDS ORDERED: POTASSIUM CHLORIDE 20 MEQ TAB PO ONE (08:45)
[2017-02-04] MEDS ORDERED: ASPIRIN 81 MG (BABY) CHEWABLE TABLET PO SCH (09:00)
[2017-02-04 09:25] VITALS: RESP 16
[2017-02-04 09:33] VITALS: TEMP 97.8
--- NOTE | 2017-02-04 13:54 | EKG ---
[address] [address] Measurements Intervals [place] Rate: 112 P: 76 UT: 116 QRS: 35 QRSD: 94 T: 59 QT: 319 QTc: 385 Interpretive Statements SINUS TACHYCARDIA WITH SHORT UT INTERVAL LOW QRS VOLTAGE IN PRECORDIAL LEADS [QRS DEFLECTION < 1.0 mV IN CHEST LEADS] ABNORMAL RHYTHM ECG WARNING: DATA QUALITY MAY AFFECT INTERPRETATION Compared to ECG 02/03/2017 21:29:26 Short UT interval now present Atrial fibrillation no longer present ST (T wave) deviation no longer present Electronically Signed On 02-06-17 08:05:16 MDT by Marino Manuel MD [email or web address]
[2017-02-04] MEDS ORDERED: ATORVASTATIN 20 MG TABLET PO SCH (21:00)
== END 2017-02-04 10:10 | disposition short-term general hospital (02) | DRG 309 ==
LOC: ER 21:12 → MED/SURG 02-04 00:26
PROVIDERS: ADMIT Internal Medicine; ATTEND Internal Medicine
DX: I48.91 Unspecified atrial fibrillation (principal); N17.9 Acute kidney failure, unspecified; E11.9 Type 2 diabetes mellitus without complications; I10 Essential (primary) hypertension; E78.5 Hyperlipidemia, unspecified; N18.9 Chronic kidney disease, unspecified; E16.2 Hypoglycemia, unspecified; E86.0 Dehydration
CPT/HCPCS: 36415 ×2; 71010; 80053; 81001; 81003; 82550; 82803; 83605; 83735; 83880; 84484; 85025; 86140; 93005; 93010; 96361; 96374; 96375; 99285 ×2; J0696; J2270; J2405; 82009; 82010; 82948; 84443; 85730; 87040; 87077; 87088; 87186; 94761; J1335; J1644; J7030; J7050; J7060